=== PATIENT | female | born 2000 | race Caucasian/White ===

== ENCOUNTER → 2019-04-04 | Outpatient (CLI) | payer BC ==
--- NOTE | 2019-04-04 15:52 | RADIOLOGY IMAGING REPORT ---
FACILITY: [facility] PATIENT NAME: Marysol Oswald : 2000 MR: [id number] V: [id number] EXAM DATE: ORDERING PHYSICIAN: DAVID STEINER TECHNOLOGIST: Location: [facility] Patient: Marysol Oswald : 2000 Visit/Account:[id number] Date of Sevice: 04/04/2019 PELVIC EXAMINATION: Transabdominal and transvaginal pelvic ultrasound with duplex Doppler evaluation. HISTORY: History of ovarian cysts. COMPARISON: None. FINDINGS: Uterus: 7.3 x 3.4 x 4.2 cm Myometrium: negative Endometrium: 3.7 mm. IUD well positioned within the fundus of the uterus. Cervix: negative Ovaries: Right ovary measuring 1.7 x 2.4 x 1.8 cm. Left ovary measuring 3.5 x 2.3 x 3.3 cm. There i s a complex heterogenous cyst with features compatible with a hemorrhagic hemorrhagic cyst in the lef t ovary measuring 2.2 x 2.8 x 1.7 cm. Blood flow is documented in each ovary by duplex Doppler ultrasound. Adnexa: negative Free pelvic fluid: Mild amount of free fluid within the pelvis. IMPRESSION: 1. IUD well positioned. 2. 2.2 x 2.8 x 1.7 cm left ovarian heterogenous cyst compatible with a hemorrhagic cyst. Report Dictated By: Slade Baez MD at 04/04/2019 3:41 PM Report E-Signed By: Slade Baez MD at 04/04/2019 3:47 PM WSN:[email or web address]
== END ==
LOC: US 13:45
PROVIDERS: ATTEND Nurse Practitioner Family
DX: R10.2 Pelvic and perineal pain (principal); N94.10 Unspecified dyspareunia; Z97.5 Presence of (intrauterine) contraceptive device
CPT/HCPCS: 76856